=== PATIENT | female | born 1995 ===

== ENCOUNTER 2021-12-21 00:52 | Emergency (ER) | payer SELFPAY ==
[2021-12-21] MEDS ORDERED: ONDANSETRON 4 MG ODT TAB PO ONE (00:58)
[2021-12-21 01:43] LABS: Alanine Aminotransferase 8 units/L (7-56); Albumin 5.1 g/dL (3.9-5); Basophils % (Auto) 0.6 % (0.0-1.8); Blood Urea Nitrogen 13 mg/dL (7-17); Calcium 10.3 mg/dL (8.4-10.2); Eosinophils # (Auto) 0.1 K/mm3 (0.0-0.4); Eosinophils % (Auto) 0.7 % (0.0-4.3); Hematocrit 44.9 % (30.3-42.9); Hemoglobin 14.4 gm/dl (10.1-14.3); Hemolysis Index 8; Lymphocytes # (Auto) 2.9 K/mm3 (1.2-5.4); Lymphocytes % (Auto) 39.5 % (13.4-35.0); Mean Corpuscular HGB Conc 32 % (30-34); Mean Corpuscular Volume 84 fl (79-97); Monocytes # (Auto) 0.7 K/mm3 (0.0-0.8); Monocytes % (Auto) 9.3 % (0.0-7.3); Platelet Count 303 K/mm3 (140-440); Red Blood Count 5.38 M/mm3 (3.65-5.03); Red Cell Distribution Width 16.3 % (13.2-15.2)
[2021-12-21 01:44] LABS: BUN/Creatinine Ratio 22
[2021-12-21 04:33] LABS: Bilirubin,Urine Negative (Negative); Blood,Urine Negative (Negative); Color,Urine Yellow (Yellow)
[2021-12-21 04:37] LABS: Mucus,Urine 3+ /HPF
== END 2021-12-21 14:02 | disposition left against medical advice (07) ==
LOC: ED 00:52
DX: R10.9 Unspecified abdominal pain (principal); Z53.21 Procedure and treatment not carried out due to patient leaving prior to being seen by health care provider
CPT/HCPCS: 36415; 80053; 81001; 83690; 84703; 85025; 87086; J3490; Q0162